=== PATIENT | female | born 1995 | race Caucasian/White ===

== ENCOUNTER → 2024-02-11 18:32 | Outpatient (REF) | payer BC, SELFPAY | LOC: MRI 3T 18:32 | PROVIDERS: ATTENDING PHYSICIAN Psychiatry & Neurology Neurology; FAMILY PHYSICIAN Nurse Practitioner | DX: D35.2 Benign neoplasm of pituitary gland (principal) | CPT/HCPCS: 70553; A9575 ==

== ENCOUNTER → 2024-07-14 08:54 | Outpatient (REF) | payer BC, SELFPAY ==
[2024-07-14 10:13] LABS: % Basophils 2.2 % (0-2); % Eosinophils 1.2 % (0-6); % Immature Granulocytes 0.3 % (0-0.5); % Lymphocytes 27.3 % (20.5-51.1); % Monocytes 7.2 % (1.7-9.3); % Neutrophils 61.8 % (42.2-75.2); Absolute Basophils 0.1 10^3/uL (0-0.2); Absolute Eosinophils 0.1 10^3/uL (0-0.7); Absolute Lymphocytes 1.6 10^3/uL (1.2-3.4); Absolute Monocytes 0.4 10^3/uL (0.1-0.6); Absolute Neutrophils 3.6 10^3/uL (1.4-6.5); Hematocrit 42.3 % (37.0-47.0); Hemoglobin 14.6 g/dL (12.0-16.0); Mean Corp Hgb Conc. 34.5 g/dL (33.0-37.0); Mean Corpuscular Hgb 30.5 pg (27.0-31.0); Mean Corpuscular Volume 88.5 fL (81.0-99.0); Nucleated Red Blood Cells % 0 %; Platelet Count 274 10^3/uL (130-400); Red Blood Cell Count 4.78 10^6/uL (4.20-5.40); Red Cell Dist. Width 11.4 % (11.5-14.5); White Blood Cell Count 5.8 10^3/uL (4.8-10.8)
[2024-07-14 11:55] LABS: ALT (SGPT) 21 U/L (0-35); AST (SGOT) 23 U/L (14-36); Albumin 5.1 g/dl (3.5-5.0); Alkaline Phosphatase 61 U/L (38-126); Blood Urea Nitrogen 17 mg/dl (7-17); Calcium 9.8 mg/dl (8.4-10.2); Carbon Dioxide 27 mmol/L (22-30); Chloride 100 mmol/L (98-107); Glucose 85 mg/dl (70-99); HDL Cholesterol 74 mg/dl; LDL Cholesterol, Calculated 78 mg/dl; Potassium 4.7 mmol/L (3.5-5.1); Sodium 137 mmol/L (135-145); Total Bilirubin 1.3 mg/dl (0.2-1.3); Total Cholesterol 161 mg/dl (50-199); Total Protein 7.3 g/dl (6.3-8.2); Triglyceride 45 mg/dl (10-149); Very Low Density Lipoprotein 9 mg/dl (0-30); eGFR > 60.00
[2024-07-14 12:44] LABS: Vitamin D, 25-OH*** 41.2 ng/mL (30-80)
[2024-07-14 12:59] LABS: TSH 1.46 uIU/ml (0.47-4.68)
[2024-07-14 18:30] LABS: Luteinizing Hormone 2.11 mIU/ml; Prolactin 8.7 ng/ml (3.0-18.6)
[2024-07-14 20:05] LABS: Vitamin B12 767 pg/ml (239-931)
[2024-07-16 15:29] LABS: Chromogranin A 36 ng/mL (0-187)
== END ==
LOC: REG 08:54
PROVIDERS: ATTENDING PHYSICIAN Family Medicine
DX: G43.109 Migraine with aura, not intractable, without status migrainosus (principal); E23.6 Other disorders of pituitary gland; I10 Essential (primary) hypertension; D35.2 Benign neoplasm of pituitary gland; K58.0 Irritable bowel syndrome with diarrhea
CPT/HCPCS: 36415; 80053; 80061; 82306; 82607; 83001; 83002; 84146; 84439; 84443; 85025; 86316

== ENCOUNTER → 2024-09-10 11:36 | Outpatient (REF) | payer BC, SELFPAY ==
[2024-09-12 12:25] LABS: Quantiferon Mitogen minus NIL 9.88 IU/mL; Quantiferon NIL 0.12 IU/mL; Quantiferon TB Gold Plus Negative (Negative)
== END ==
LOC: REG 11:36
PROVIDERS: ATTENDING PHYSICIAN Family Medicine
DX: Z13.9 Encounter for screening, unspecified (principal)
CPT/HCPCS: 86480

== ENCOUNTER → 2024-10-06 09:14 | Outpatient (REF) | payer BC, SELFPAY | LOC: WDC 09:14 | PROVIDERS: ATTENDING PHYSICIAN Family Medicine | DX: N63.21 Unspecified lump in the left breast, upper outer quadrant (principal) | CPT/HCPCS: 76642; 77062; 77066 ==

== ENCOUNTER → 2024-11-03 09:39 | Outpatient (REF) | payer BC, SELFPAY ==
[2024-11-03 11:16] LABS: Cortisol, Random 5.9 ug/dl
[2024-11-05 06:24] LABS: IGF-1 Z Score Calculation 0.7
== END ==
LOC: REG 09:39
PROVIDERS: ATTENDING PHYSICIAN Internal Medicine Endocrinology, Diabetes & Metabolism; FAMILY PHYSICIAN Family Medicine
DX: E23.6 Other disorders of pituitary gland (principal); L68.0 Hirsutism
CPT/HCPCS: 36415; 82533; 83498; 84305

== ENCOUNTER → 2025-02-22 10:25 | Outpatient (REF) | payer BC, SELFPAY ==
[2025-02-25 04:01] LABS: HPV, High Risk Not Detected; HPV, High Risk Source Cervical
== END ==
LOC: CPAP 10:25
PROVIDERS: ATTENDING PHYSICIAN Obstetrics & Gynecology Gynecology
DX: Z01.419 Encounter for gynecological examination (general) (routine) without abnormal findings (principal)
CPT/HCPCS: 87624; G0123